=== PATIENT | male | born 1930 | race Caucasian/White ===

== ENCOUNTER 2016-12-02 04:59 | Inpatient (IN) | payer OTHER ==
[2016-11-16 14:03] VITALS: BMI 32.0
--- NOTE | 2016-11-16 14:53 | PAT Medication Instructions ---
Service Date Nov 16, 2016. Current Home Medication List Ascorbic Acid (Vitamin C), 1,000 MG PO QAM Aspirin (Aspirin Ec), 81 MG PO QAM Fenofibrate (Tricor), 160 MG PO QPM Fish Oil ([place]-3), 1 CAP PO BID Glipizide (Glipizide Er), 1 TAB PO QAM Hydrochlorothiazide (Hydrochlorothiazide), 1 TAB PO QAM Lisinopril (Prinivil), 10 MG PO QAM Loratadine (Loratadine), 1 CAP PO QAM Metoprolol Succ (Toprol Xl) (Toprol-Xl), 50 MG PO BID Montelukast Sodium (Singulair), 10 MG PO QPM Sertraline (Zoloft), 100 MG PO QAM Simvastatin (Zocor), 40 MG PO QPM Medication Instructions For Your Scheduled Surgery - Hold the following medications 2 weeks prior to surgery: Fish Oil ([place]-3), 1 CAP PO BID - Hold the following medications 24 hours prior to surgery: Fenofibrate (Tricor), 160 MG PO QPM - Hold the following medications the morning of surgery: Ascorbic Acid (Vitamin C), 1,000 MG PO QAM Glipizide (Glipizide Er), 1 TAB PO QAM Hydrochlorothiazide (Hydrochlorothiazide), 1 TAB PO QAM Lisinopril (Prinivil), 10 MG PO QAM Loratadine (Loratadine), 1 CAP PO QAM - Take the following medications the morning of surgery with a sip of water OTHERWISE NOTHING TO EAT OR DRINK AFTER MIDNIGHT: Metoprolol Succ (Toprol Xl) (Toprol-Xl), 50 MG PO BID Sertraline (Zoloft), 100 MG PO QAM Aspirin (Aspirin Ec), 81 MG PO QAM - Take the following medications as scheduled the night before surgery: Metoprolol Succ (Toprol Xl) (Toprol-Xl), 50 MG PO BID Simvastatin (Zocor), 40 MG PO QPM Montelukast Sodium (Singulair), 10 MG PO QPM If you have any questions please call us at [phone] or [phone] or [phone]
[2016-11-16 15:39] LABS: BASO % 0.4 %; BASO ABS # 0.02 K/uL (0-0.2); COMPLETE YES; EOS % 3.7 %; LYMPH % 36.2 %; LYMPH ABS # 1.65 K/uL (1.2-3.4); MEAN CORPUSCULAR HGB CONC 31.5 g/dl (32-36); MEAN PLATELET VOLUME 9.4 fL (7.4-10.4); MONO % 8.6 %; NEUT % 51.1 %; PLATELET COUNT 191 K/uL (130-400); RED BLOOD COUNT 4.77 M/uL (4.7-6.1); WHITE BLOOD COUNT 4.56 K/uL (4.8-10.8)
[2016-11-16 15:42] LABS: URINE APPEARANCE CLOUDY (CLEAR); URINE BILIRUBIN NEG (NEG); URINE COLOR YELLOW; URINE EPITHELIAL CELL AUTO 0-5 /lpf (0-5); URINE NITRITE NEG (NEG); URINE SPECIFIC GRAVITY 1.017 (1.000-1.030); UROBILINOGEN NEG (NEG)
[2016-11-16 15:43] LABS: MANUAL MICROSCOPIC REQUIRED? NO; REVIEW REQ? NO
--- NOTE | 2016-11-16 15:51 | DIAGNOSTIC IMAGING REPORT ---
CHEST PREADMISSION(PA/LAT) CLINICAL HISTORY: PAT preoperative evaluation COMPARISON STUDY: No previous studies for comparison. FINDINGS: Mild cardiomegaly. Permanent bipolar cardiac pacemaker. Lungs are clear. Diaphragms smooth. IMPRESSION: Mild cardiomegaly. No acute process. The above report was generated using voice recognition software. It may contain grammatical, syntax or spelling errors. Electronically signed by: Todd Campbell M.D. 11/16/2016 3:50 PM Dictated Date/Time: 11/16/2016 3:49 PM
[2016-11-16 16:19] LABS: CALCIUM 9.6 mg/dl (8.5-10.1); CREATININE 1.6 mg/dl (0.60-1.40); POTASSIUM 4.8 mmol/L (3.5-5.1)
[2016-11-17 05:53] LABS: ESTIMATED AVERAGE GLUCOSE 108 mg/dl; HA1C FLAG Normal (Normal)
--- NOTE | 2016-12-01 15:01 | HISTORY & PHYSICAL EXAMINATION ---
DATE OF ADMISSION: 12/02/2016 CHIEF COMPLAINT: Left hip pain. HISTORY OF PRESENT ILLNESS: The patient is an 86-year-old gentleman with severe, debilitating left hip osteoarthritis. He has almost nonambulatory due to the significant pain and disability. He has had previous injections, anti-inflammatory medications without significant benefit. He now desires to proceed with left total hip arthroplasty. PAST MEDICAL HISTORY: Bladder cancer, type 2 diabetes, hyperlipidemia, depression, coronary artery disease, sleep apnea with CPAP use, prostate cancer. PAST SURGICAL HISTORY: Cardiac pacemaker, bowel surgery, cholecystectomy, angioplasty x3, renal stent, prostate surgery, hernia repair. MEDICATIONS: Aspirin 81 mg daily, Celebrex 200 mg daily, fenofibrate 160 mg daily, fish oil 1,000 mg twice daily, fluticasone nasal spray, glipizide ER 10 mg daily, hydrochlorothiazide 25 mg daily, lisinopril 10 mg daily, loratadine 10 mg daily, montelukast 10 mg at bedtime, multivitamin daily, nitroglycerin 0.4 mg sublingual p.r.n. chest pain, omeprazole 40 mg daily, ropinirole 0.5 mg daily at bedtime, sertraline 100 mg twice daily, simvastatin 40 mg daily, Toprol-XL 50 mg twice daily, tramadol 50 mg p.r.n. pain, vitamin C 500 mg 2 tablets daily. ALLERGIES: NIACIN CAUSES FLUSHING. SOCIAL HISTORY AND REVIEW OF SYSTEMS: Noncontributory. PHYSICAL EXAMINATION: GENERAL: Well-nourished, well-developed elderly male who appears his stated age. HEAD, EYES, EARS, NOSE, AND THROAT: Normocephalic, atraumatic, extraocular movements intact, oropharynx pink and moist. NECK: Supple without adenopathy. LUNGS: Clear to auscultation bilaterally. HEART: Regular rate and rhythm. ABDOMEN: Soft, nontender, nondistended. EXTREMITIES: The upper extremity within normal limits. The left hip has severely limited range of motion. There is virtually no internal or internal/external rotation with pain at end range. X-RAYS: X-rays were reviewed. He has severe osteoarthritis about the left hip. There is severe deformation of the femoral head. ASSESSMENT: Left hip degenerative joint disease. PLAN: Risks versus benefits were discussed. Consent was obtained. The patient's primary care physician is Sharon Meza from Dr. Mohamud's office. Will proceed with left total hip arthroplasty upon preoperative workup and medical clearance.
[~2016-12-02] VITALS: Ht 182.9 cm; Wt 106.1 kg
[2016-12-02] VITALS (9 sets, daily range): BP systolic 117–177; BP diastolic 53–82; PULSE 55–66; TEMP 36.5–37.2; O2SAT 91–100; Ht 182.9 cm; Wt 106.1 kg
[~2016-12-02 04:59] MED LIST: ASCA500 PO; ASPI81TA28 PO; FENO160T PO; GLIP-199 PO; HYDR25TA5 PO; LISI10TA PO; LORA10CA10 PO; METO50TA7 PO; MONT1TAB3 PO; OMEG10007 PO; SERT-234 PO; SIMV40TA2 PO
[2016-12-02] MEDS ORDERED: CeleBREX 200 MG CAP PO SCH (06:00)
[2016-12-02] MEDS ORDERED: DEXAMETHASONE 4 MG TAB PO SCH (06:00)
[2016-12-02] MEDS ORDERED: ACETAMINOPHEN 500 MG TAB PO SCH (06:00)
[2016-12-02] MEDS ORDERED: LACTATED RINGER'S 1000ML 1,000 ML IV SCH (06:00)
[2016-12-02] MEDS ORDERED: CEFAZOLIN 2000 MG/60 ML D5W 60 ML IV SCH (06:00)
[2016-12-02] MEDS ORDERED: GABAPENTIN 300 MG CAP PO SCH (06:00)
[2016-12-02] MEDS ORDERED: METOCLOPRAMIDE HCL 10 MG TAB PO SCH (06:00)
[2016-12-02] MEDS ORDERED: LACTATED RINGER'S 1000ML IV SCH (06:00)
[2016-12-02] MEDS ORDERED: ROPIVACAINE 5MG/ML 30 ML 150 MG, BUPIVACAINE/EPINEPHR 0.5% MPF 30 ML, KETOROLAC TROMETH... INFIL SCH ×7 (06:00)
[2016-12-02] MEDS ORDERED: FAMOTIDINE 20 MG TAB PO SCH (06:00)
[2016-12-02] MEDS ORDERED: BUPIVACAINE 0.5 % 5 MG/1 ML PF 10ML VIAL ONE (06:14)
[2016-12-02] MEDS ORDERED: FENTANYL CITRATE INJ 50 MCG/1 ML 2 ML VIAL ONE (06:26)
[2016-12-02] MEDS: TRANEXAMIC ACID INJ 1,000 MG in SODIUM CHLORIDE 0.9% 100ML 100 ML IV SCH ×2 (06:30→07:00)
[2016-12-02] MEDS ORDERED: ORTHO JOINT ANESTHETIC ONE (06:47)
[2016-12-02] MEDS ORDERED: BACITRACIN 50000 UNIT VIAL ONE (06:47)
[2016-12-02] MEDS ORDERED: POVIDONE-IODINE OP SOLN 30 ML BTL ONE (06:47)
[2016-12-02] MEDS ORDERED: EpHEDrine SULFATE INJ 50 MG/ML AMP IV PRN (07:00)
[2016-12-02] MEDS ORDERED: FENTANYL CITRATE INJ 50 MCG/1 ML 2 ML VIAL IV PRN (07:00)
[2016-12-02] MEDS ORDERED: ATROPINE SULFATE 0.1 MG/ML 5ML SYR IV PRN (07:00)
[2016-12-02] MEDS ORDERED: ONDANSETRON INJ 2 MG/ML 2 ML VIAL IV PRN ×2 (07:00→08:45)
--- NOTE | 2016-12-02 07:05 | History & Physical Bridge Note ---
H&P Re-Evaluation Bridge Note: I have examined the patient, reviewed the History & Physical and in the interval since the performance of the History & Physical I have noted the following changes of clinical significance: No changes noted
[2016-12-02] MEDS ORDERED: ONDANSETRON INJ 2 MG/ML 2 ML VIAL ONE (07:49)
[2016-12-02] MEDS ORDERED: LIDOCAINE HCL 2% 2 ML VIAL (20MG/ML) ONE (07:49)
[2016-12-02] MEDS ORDERED: METOPROLOL TARTRATE 1 MG/ML VIAL ONE (07:49)
[2016-12-02] MEDS ORDERED: PROPOFOL IV EMULSION 10 MG/ML 20 ML VIAL IV ONE (07:49)
--- NOTE | 2016-12-02 08:09 | [facility] Post Operative Brief Note ---
Immediate Operative Summary Operative Date Dec 02, 2016. Pre-Operative Diagnosis Left hip degenerative joint disease Post-Operative Diagnosis Left hip degenerative joint disease Procedure(s) Performed Left total hip arthroplasty Surgeon Dr. Dahl [employer] Surgeon(s) Homer Díaz PA-C Estimated Blood Loss 100cc Findings severe OA Specimens A: Left femoral head Disposition Recovery Room / PACU
--- NOTE | 2016-12-02 08:28 | OPERATIVE REPORT ---
DATE OF OPERATION: 12/02/2016 PREOPERATIVE DIAGNOSIS: Osteoarthritis left hip. POSTOPERATIVE DIAGNOSIS: Osteoarthritis left hip. PROCEDURE: Left connective total hip arthroplasty. SURGEON: Dr. Dahl. ENVIRONMENTAL ANALYST: Homer Díaz PA-C. ANESTHESIA: Spinal. COMPLICATIONS: None. DESCRIPTION OF PROCEDURE: Following induction of adequate spinal anesthesia, the patient was placed in right lateral decubitus position and left Stefanie-Langenbeck incision was made. Subcutaneous tissue was sharply dissected. Electrocautery used for hemostasis. The fascia was incised throughout the length of the wound and a izquierdo scissor placed beneath the short external rotators. The pyriformis was tagged with #1 Vicryl. The short external rotators were divided from the posterior aspect of the femur using electrocautery. These were swept posteriorly. A T-capsulotomy incision was made and the hip was dislocated using a combination of flexion, adduction, and internal rotation. Exposure of the femoral neck with old-style Hohmann and a blunt Hohmann was carried out and a femoral rasp was utilized as a guide for making the appropriate level femoral neck cut. This bone fragment was removed and reserved on the back table. Next, attention was turned to the acetabulum where bone hook was used to retract the femur while the offset retractors were placed anterior and posteriorly. A double-angled Hohmann was placed in superior and anterior position exposing the acetabulum nicely. Acetabular labrum as well as posterior capsule elements were removed using a long knife and a long pickup. Fovea centralis was cleared of all soft tissue. Sequential reamings were carried up to a 60 and decision was made to proceed with impaction of a 60 trabecular metal cup. This was impacted and held using a single 35 mm bone screw. The acetabular liner was placed with 15 of elevated posterior wall in the superior and posterior position. Next, attention was turned to the femoral portion of the case where a Bovie and pickup was used to further clear short external rotators from their insertion on the femur. Box osteotome was used to gain access to the femoral canal and the T-handled rasp and a rattail rasp were used to further open and lateral the canal. Sequentially raspings were carried up to a 6 which gave good fit and fill of the proximal femur. A trial reduction was carried out and std offset femoral neck component was chosen as the size to be used. A -2.5 x 36 mm ceramic femoral head was impacted into position, +0 head was utilized. The trial reduction was stable in all degrees of rotation with no [id number] impingement. The hip was dislocated. The trial components were removed and the final femoral stem, neck, and femoral head combination were assembled on the back table and impacted into position. Hip was relocated. Range of motion checked once again successful and the wound was irrigated. The pyriformis repaired to the greater trochanter using #1 Vicryl [id number] suture. A Hemovac drain was placed and the fascia was closed using #1 Vicryl, subcutaneous tissue was closed using 0 Dexon, and skin was closed with jason. Sterile dressing of Adaptic, 4 x 4's, ABDs, and foam tape was applied. The patient tolerated the procedure well and went to recovery room stable. Due to the complex nature of the procedure, the entire surgery was performed with the operational assistance of Homer Díaz PA-C. The patient services assistant, under direct supervision, was involved in the actual performance of all aspects of the surgical procedure including hemostasis, tissue retraction and incision, instrument management, patient positioning, and wound closure. I attest to the content of the Intraoperative Record and any orders documented therein. Any exceptions are noted below. YOEL
[2016-12-02] MEDS ORDERED: OXYCODONE HCL IR 5 MG TAB (IMMEDIATE RELEASE) PO PRN (08:45)
[2016-12-02] MEDS ORDERED: MoRPHine SULFATE 2 MG/ML CARP IV PRN (08:45)
[2016-12-02] MEDS ORDERED: ALUMINUM/MAGNESIUM/SIMETH (MAALOX MAX) 30 ML UDC PO PRN (08:45)
[2016-12-02] MEDS ORDERED: TAMSULOSIN HCL 0.4 MG CAP PO PRN (08:45)
[2016-12-02] MEDS ORDERED: ZOLPIDEM TARTRATE 5 MG TAB PO PRN (08:45)
[2016-12-02] MEDS ORDERED: MAGNESIUM HYDROXIDE SUSP 30 ML UDC PO PRN (08:45)
[2016-12-02] MEDS ORDERED: METOCLOPRAMIDE HCL INJ 5 MG/ML 2 ML VIAL IV PRN (08:45)
[2016-12-02] MEDS ORDERED: LISINOPRIL 10 MG TAB PO SCH (09:00)
[2016-12-02] MEDS ORDERED: HYDROCHLOROTHIAZIDE 25 MG TAB PO SCH (09:00)
--- NOTE | 2016-12-02 09:24 | DIAGNOSTIC IMAGING REPORT ---
AP PELVIS AND LEFT HIP 2 VIEWS CLINICAL HISTORY: Osteoarthritis. Postop study. COMPARISON STUDY: No previous studies for comparison. FINDINGS: There are postsurgical changes of a total left hip arthroplasty. The acetabular and femoral components appear well seated. Overlying surgical drains are evident. There is air within soft tissues consistent with recent surgery. There is no dislocation. Surgical clips are present within the pelvis. IMPRESSION: Postsurgical changes of a total left hip arthroplasty. Electronically signed by: Daniel Bates M.D. 12/02/2016 9:22 AM Dictated Date/Time: 12/02/2016 9:21 AM
--- NOTE | 2016-12-02 09:45 | Anesthesiology Progress Note ---
Anesthesia Post Op Note Date & Time Dec 02, 2016 at 09:45 Vital Signs Pain Intensity: 0 Vital Signs Past 12 Hours Date Time Temp Pulse Resp B/P (MAP) Pulse Ox O2 Delivery O2 Flow Rate FiO2 12/02/16 09:35 36.6 63 18 115/56 97 Nasal Cannula 2 12/02/16 09:25 63 18 133/67 96 Nasal Cannula 2 12/02/16 09:15 60 16 143/65 99 Nasal Cannula 2 12/02/16 09:05 60 16 139/66 99 Nasal Cannula 2 12/02/16 08:55 60 16 127/58 96 Nasal Cannula 2 12/02/16 08:45 63 16 146/80 96 Nasal Cannula 2 12/02/16 08:35 37.0 75 16 129/56 97 Nasal Cannula 2 12/02/16 05:30 36.8 58 18 177/82 96 Room Air Notes Mental Status: alert / awake / arousable, participated in evaluation Pt Amnestic to Procedure: Yes Nausea / Vomiting: adequately controlled Pain: adequately controlled Airway Patency, RR, SpO2: stable & adequate BP & HR: stable & adequate Hydration State: stable & adequate Neuraxial Anesthesia: was administered, sensory block is resolving Anesthetic Complications: no major complications apparent
[2016-12-02] MEDS ORDERED: MoRPHine SULFATE 4 MG/ML 1 ML CARP\\VIAL IV PRN (10:45)
[2016-12-02] MEDS: ASCORBIC ACID 500 MG TAB PO SCH (10:58)
[2016-12-02] MEDS: SODIUM CHLORIDE 0.9% 1000ML 1,000 ML IV SCH ×2 (11:00→18:11)
[2016-12-02] MEDS: METOPROLOL SUCC 50MG EXT REL TAB PO SCH ×2 (11:02→21:21)
[2016-12-02] MEDS ORDERED: INFLUENZA VACCINE HIGH DOSE 65+ 0.5 ML SYR IM. ONE (12:30)
[2016-12-02] MEDS ORDERED: INFLUENZA ADMINISTRATION CHARGE ONE (12:30)
[2016-12-02] MEDS: KETOROLAC TROMETHAMINE 15 MG/ML VIAL IV. SCH ×3 (12:38→23:58)
[2016-12-02] MEDS: FERROUS GLUCONATE 324 MG TAB PO SCH ×2 (12:39→18:04)
[2016-12-02] MEDS: ACETAMINOPHEN 500 MG TAB PO SCH ×2 (13:41→21:22)
[2016-12-02] MEDS: CEFAZOLIN IV 2,000 MG in DEXTROSE 5% 50ML 50 ML IV SCH ×2 (16:30→23:58)
[2016-12-02] MEDS ORDERED: GLUCOSE 40% GEL 15 GM TUBE PO PRN (19:30)
[2016-12-02] MEDS ORDERED: GLUCAGON FOR INJ 1 MG VIAL SQ PRN (19:30)
[2016-12-02] MEDS ORDERED: INSULIN ASPART 100 UNITS/ML 3 ML PEN SC SCH (19:30)
[2016-12-02] MEDS ORDERED: GLUCOSE 10 TABS/TUBE PO PRN (19:30)
[2016-12-02] MEDS ORDERED: DEXTROSE 50% 50 ML SYR IV PRN (19:30)
[2016-12-02] MEDS: MONTELUKAST SOD 10 MG TAB PO SCH (21:22)
[2016-12-02] MEDS: DOCUSATE SODIUM 100 MG CAP PO SCH (21:22)
[2016-12-02] MEDS: ASPIRIN 81 MG ECTAB PO SCH (21:22)
[2016-12-02] MEDS: SIMVASTATIN 40 MG TAB PO SCH (21:22)
--- NOTE | 2016-12-02 21:22 | History and Physical ---
History & Physical Date & Time of Service: Dec 02, 2016 at 21:09. Medical consultation Chief Complaint: Left Hip Osteoarthritis Primary Care Physician: Sharon Meza .,KELLE History of Present Illness Source: patient Mr. Ambriz is an 86 y/o male with PMHx of T2DM, HLD, CAD, HANNAH on CPAP, S/P Dual Chamber Pacemaker, Bladder CA, and Prostate CA who is S/P L CINDY. Patient is ambulating the hallways when visiting for assessment. Reporting good control of pain and tolerating diet. Gait is steady with walker. A1c 5.4 on pre- operative labs and reports good control with oral agents. Cr on pre-operative labs 1.6 with no further labs for baseline. Patient verbalizes no complaints at this time. Past Medical/Surgical History 1. T2DM 2. HLD 3. CAD 4. HANNAH 5. S/P Dual Chamber Pacemaker 6. Bladder CA 7. Prostate CA Family History Diabetes mellitus Hypertension Social History Smoking Status: Never Smoker Smokeless Tobacco Use: No Alcohol Use: none Drug Use: none Occupational Status: retired Immunizations History of Influenza Vaccine: Unknown History of Tetanus Vaccine?: Unknown History of Pneumococcal: Unknown History of Hepatitis B Vaccine: Unknown Multi-Drug Resistant Organisms History of MDRO: No Allergies Coded Allergies: Niacin (Verified Adverse Reaction, Unknown, SEVERE FLUSHING, 12/02/16) Home Medications Scheduled Ascorbic Acid (Vitamin C), 1,000 MG PO QAM Aspirin (Aspirin Ec), 81 MG PO QAM Fenofibrate (Tricor), 160 MG PO QPM Fish Oil ([place]-3), 1 CAP PO BID Glipizide (Glipizide Er), 1 TAB PO QAM Hydrochlorothiazide (Hydrochlorothiazide), 1 TAB PO QAM Lisinopril (Prinivil), 10 MG PO QAM Loratadine (Loratadine), 1 CAP PO QAM Metoprolol Succ (Toprol Xl) (Toprol-Xl), 50 MG PO BID Montelukast Sodium (Singulair), 10 MG PO QPM Sertraline (Zoloft), 100 MG PO QAM Simvastatin (Zocor), 40 MG PO QPM Review of Systems Constitutional: No fever, No chills Respiratory: No cough, No shortness of breath Cardiovascular: No chest pain, No palpitations Abdomen: No pain, No nausea, No vomiting, No diarrhea, No constipation Genitourinary - Male: No dysuria Neurologic: No numbness/tingling Hematologic / Lymphatic: No abnormal bleeding/bruising, No clotting problems Integumentary: No rash Physical Exam Vital Signs Date Time Temp Pulse Resp B/P (MAP) Pulse Ox O2 Delivery O2 Flow Rate FiO2 12/02/16 19:20 36.9 60 18 117/65 (82) 91 Room Air 12/02/16 15:15 36.8 61 18 130/53 (78) 95 Room Air 12/02/16 13:02 36.8 60 17 138/64 (88) 96 Nasal Cannula 2.0 12/02/16 12:00 36.5 56 17 156/66 (96) 99 Nasal Cannula 2.0 12/02/16 11:00 36.7 57 16 146/75 (98) 100 Nasal Cannula 3.0 12/02/16 10:30 36.7 55 16 127/70 (89) 99 Nasal Cannula 3.0 12/02/16 10:00 97 Nasal Cannula 3.0 12/02/16 10:00 Nasal Cannula 3.0 12/02/16 10:00 37.2 60 16 135/66 (89) 97 Nasal Cannula 3.0 12/02/16 09:35 36.6 63 18 115/56 97 Nasal Cannula 2 12/02/16 09:25 63 18 133/67 96 Nasal Cannula 2 12/02/16 09:15 60 16 143/65 99 Nasal Cannula 2 12/02/16 09:05 60 16 139/66 99 Nasal Cannula 2 12/02/16 08:55 60 16 127/58 96 Nasal Cannula 2 12/02/16 08:45 63 16 146/80 96 Nasal Cannula 2 12/02/16 08:35 37.0 75 16 129/56 97 Nasal Cannula 2 12/02/16 05:30 36.8 58 18 177/82 96 Room Air General Appearance: WD/WN, no apparent distress Head: normocephalic, atraumatic Eyes: sclerae normal ENT: + pertinent finding (mildly heard of hearing) Neck: supple, no JVD, trachea midline Respiratory/Chest: lungs clear, normal breath sounds, no respiratory distress, no accessory muscle use Cardiovascular: regular rate, rhythm Abdomen/GI: normal bowel sounds, non tender, soft Extremities/Musculoskelatal: no calf tenderness, no pedal edema, + pertinent finding (drain placed; TAD wrap C/D/I) Neurologic/Psych: alert, oriented x 3 Skin: normal color, warm/dry Diagnostics Laboratory Results Results Past 24 Hours Test 12/02/16 05:15 12/02/16 20:42 Range/Units Bedside Glucose 91 144 70-99 mg/dl Impression Assessment and Plan Mr. Ambriz is an 86 y/o male with PMHx of T2DM, HLD, CAD, HANNAH on CPAP, S/P Dual Chamber Pacemaker, Bladder CA, and Prostate CA who is S/P L CINDY. S/P L CINDY on 12/02: - Pain management, IVF, PT/OT, DVT prophylaxis per primary - DVT prophylaxis - ASA 81 mg BID T2DM: A1c 5.4 - Glipizide XL 10 mg daily and SSI HTN: - Hold HCTZ and Lisinopril until morning labs - cover with PRN Hydralazine - Metoprolol SUcc 50 mg BID CAD: - ASA as above and Zocor 40 mg daily Possible CKD Stage III: - Limited labs but given history would suspect some underlying kidney disease - Avoid nephrotoxic agents and monitor with BMP Attending Addendum: I have physically seen and examined this patient, have directed the physician assistants medical activities, and agree with the H&P as noted above with the following exceptions as noted. The patient is awake, alert and oriented 3, well-developed and well-nourished , normocephalic and atraumatic, mildly hard of hearing, lying in bed and in no acute distress. HEENT--PERRL, EOMI, mucous membranes and oropharynx normal. Neck--supple, no JVD or bruits, thyroid normal, trachea midline, no adenopathy. Heart--normal S1 and S2, no extra beats, no murmurs, rubs or gallops. Lungs--clear bilaterally with good air movement, no respiratory distress, no accessory muscle use. Abdomen--normal bowel sounds and soft, nontender and nondistended, no hernias or masses, no organomegaly. Extremities--strength placed in left hip and Tad wrapped. There are good distal pulses b/l. Dermatologic--normal skin turgor, normal color, warm and dry, no abnormal lymph nodes, no rash. Neurologic--cranial nerves II through XII grossly intact. Rheumatologic--limited postsurgery Psychiatric--normal affect. Assessment and Plan: Status post left total hip arthroplasty on 12/02-- Seen postoperatively is medically stable. Diabetes mellitus-- Place on Accu-Cheks before meals and at bedtime with NovoLog coverage per scale. Glipizide XL 10 mg daily. CAD/hypertension-- Hold HCTZ and lisinopril until morning labs. Metoprolol succinate 50 mg by mouth twice a day with hold parameters. Hydralazine 10 mg IV every 4 hours when necessary systolic blood pressure greater 160. Level of Care Med/Surg Advanced Directives Existing Advance Directive: No Existing Living Will: No Existing Power of Segregator: No Resuscitation Status FULL RESUSCITATION VTE Prophylaxis VTE Risk Assessment Done? Y/N: Yes Risk Level: Low
[2016-12-03] MEDS: SODIUM CHLORIDE 0.9% 1000ML 1,000 ML IV SCH ×2 (03:55→14:38)
[2016-12-03 04:00] VITALS: BP 139/66; PULSE 64; TEMP 36.8; O2SAT 96
[2016-12-03] MEDS: KETOROLAC TROMETHAMINE 15 MG/ML VIAL IV. SCH (05:43)
[2016-12-03] MEDS: ACETAMINOPHEN 500 MG TAB PO SCH ×3 (05:43→21:05)
[2016-12-03 06:43] LABS: BASO % 0.3 %; BASO ABS # 0.02 K/uL (0-0.2); COMPLETE YES; EOS % 0.3 %; HEMATOCRIT 32.1 % (42-52); IG% 0.2 %; LYMPH % 18.3 %; LYMPH ABS # 1.15 K/uL (1.2-3.4); MEAN CELL VOLUME 84.3 fL (80-100); MEAN CORPUSCULAR HEMOGLOBIN 27.3 pg (25-34); MEAN CORPUSCULAR HGB CONC 32.4 g/dl (32-36); MEAN PLATELET VOLUME 9.8 fL (7.4-10.4); MONO % 11.8 %; NEUT % 69.1 %; PLATELET COUNT 140 K/uL (130-400); RED BLOOD COUNT 3.81 M/uL (4.7-6.1); WHITE BLOOD COUNT 6.28 K/uL (4.8-10.8)
[2016-12-03 07:22] LABS: BUN/CREATININE RATIO 21.5 (10-20); CALCIUM 8.5 mg/dl (8.5-10.1); CREATININE 2.3 mg/dl (0.60-1.40); POTASSIUM 4.5 mmol/L (3.5-5.1)
[2016-12-03] MEDS ORDERED: DEXAMETHASONE INJ 10 MG in SYRINGE 0 ML IV ONE (07:30)
[2016-12-03 07:37] VITALS: BP 150/72; PULSE 60; TEMP 36.6; O2SAT 94
--- NOTE | 2016-12-03 07:39 | Orthopedic Progress Note ---
Orthopedic Progress Note Date of Service Dec 03, 2016. Subjective Post OP Day: 1 Reports: feeling well, Denies: complaints Objective calves soft nontender, N/V intact, hip located, dressing C/D/I, A&O x3, toes mobile Date Time Temp Pulse Resp B/P (MAP) Pulse Ox O2 Delivery O2 Flow Rate FiO2 12/03/16 04:00 36.8 64 18 139/66 (90) 96 CPAP 12/02/16 23:45 Room Air CPAP 12/02/16 23:22 36.5 66 18 146/75 (98) 93 CPAP 12/02/16 19:20 36.9 60 18 117/65 (82) 91 Room Air 12/02/16 16:30 Room Air 12/02/16 15:15 36.8 61 18 130/53 (78) 95 Room Air 12/02/16 13:02 36.8 60 17 138/64 (88) 96 Nasal Cannula 2.0 12/02/16 12:00 36.5 56 17 156/66 (96) 99 Nasal Cannula 2.0 12/02/16 11:00 36.7 57 16 146/75 (98) 100 Nasal Cannula 3.0 12/02/16 10:30 36.7 55 16 127/70 (89) 99 Nasal Cannula 3.0 12/02/16 10:00 97 Nasal Cannula 3.0 12/02/16 10:00 Nasal Cannula 3.0 12/02/16 10:00 37.2 60 16 135/66 (89) 97 Nasal Cannula 3.0 12/02/16 09:35 36.6 63 18 115/56 97 Nasal Cannula 2 12/02/16 09:25 63 18 133/67 96 Nasal Cannula 2 12/02/16 09:15 60 16 143/65 99 Nasal Cannula 2 12/02/16 09:05 60 16 139/66 99 Nasal Cannula 2 12/02/16 08:55 60 16 127/58 96 Nasal Cannula 2 12/02/16 08:45 63 16 146/80 96 Nasal Cannula 2 12/02/16 08:35 37.0 75 16 129/56 97 Nasal Cannula 2 Laboratory Results 24 Hours: Test 12/03/16 06:30 White Blood Count 6.28 K/uL Red Blood Count 3.81 M/uL Hemoglobin 10.4 g/dL Hematocrit 32.1 % Mean Corpuscular Volume 84.3 fL Mean Corpuscular Hemoglobin 27.3 pg Mean Corpuscular Hemoglobin Concent 32.4 g/dl Platelet Count 140 K/uL Mean Platelet Volume 9.8 fL Neutrophils (%) (Auto) 69.1 % Lymphocytes (%) (Auto) 18.3 % Monocytes (%) (Auto) 11.8 % Eosinophils (%) (Auto) 0.3 % Basophils (%) (Auto) 0.3 % Neutrophils # (Auto) 4.34 K/uL Lymphocytes # (Auto) 1.15 K/uL Monocytes # (Auto) 0.74 K/uL Eosinophils # (Auto) 0.02 K/uL Basophils # (Auto) 0.02 K/uL Assessment & Plan Assessment: POD 1 s/p Left CINDY Increase in BUN/Creat Plan: PT/OT All NSAIDS on hold for now continue IV hydration Planning for SNF vs [facility]; If SNF, patient will need a 3 day stay prior to DC Inhouse Planning Pain Management: Morphine, PO Tylenol, Oxy IR DVT Prophylaxis: TEDs, SCDs, ASA Discharge Planning Discharge Planning: uncertain
[2016-12-03] MEDS: ASCORBIC ACID 500 MG TAB PO SCH (07:51)
[2016-12-03] MEDS: METOPROLOL SUCC 50MG EXT REL TAB PO SCH ×2 (07:52→21:06)
[2016-12-03] MEDS: DOCUSATE SODIUM 100 MG CAP PO SCH ×2 (07:53→21:04)
[2016-12-03] MEDS: FERROUS GLUCONATE 324 MG TAB PO SCH ×3 (07:53→17:25)
[2016-12-03] MEDS: ASPIRIN 81 MG ECTAB PO SCH ×2 (07:53→21:04)
[2016-12-03] MEDS: MULTIVITAMIN TAB PO SCH (07:54)
[2016-12-03] MEDS: SERTRALINE HCL 100 MG TAB PO SCH (07:54)
[2016-12-03] MEDS ORDERED: INSULIN ASPART 100 UNITS/ML 3 ML PEN SC SCH (08:00)
--- NOTE | 2016-12-03 08:30 | Anesthesiology Progress Note ---
Anesthesia Post Op Note Date & Time Dec 03, 2016 at 08:30 Vital Signs Pain Intensity: 0.0 Vital Signs Past 12 Hours Date Time Temp Pulse Resp B/P (MAP) Pulse Ox O2 Delivery O2 Flow Rate FiO2 12/03/16 07:37 36.6 60 18 150/72 (98) 94 Room Air 12/03/16 04:00 36.8 64 18 139/66 (90) 96 CPAP 12/02/16 23:45 Room Air CPAP 12/02/16 23:22 36.5 66 18 146/75 (98) 93 CPAP Notes Mental Status: alert / awake / arousable, participated in evaluation Pt Amnestic to Procedure: Yes Nausea / Vomiting: adequately controlled Pain: adequately controlled Airway Patency, RR, SpO2: stable & adequate BP & HR: stable & adequate Hydration State: stable & adequate Neuraxial Anesthesia: was administered, sensory block resolved Anesthetic Complications: no major complications apparent
--- NOTE | 2016-12-03 09:49 | Clinical Documentation Query ---
CLINICAL DOCUMENTATION QUERY An 86 yo male with S/P L CINDY and hx of CKD stage III. In your clinical opinion is this patient being managed for: ( x ) Acute kidney failure, unspecified - Only did the initial consultation and will not be documenting on this patient ( ) Not Agree ( ) Other explanation of clinical findings (Please Explain) ( ) Unable to determine (Please Define) ( ) Need to Discuss The medical record reflects the following clinical findings, treatment, and risk factors. Clinical Indicators: sCr increase 0.7ml/dl in 48 hr (1.60 trending up to 2.30), decline in GFR (37.9 baseline trending down to 24.4) Treatment: IV hydration, I&O Risk Factors: age, s/p surgical intervention, ckd III Please clarify and document your clinical opinion in the progress notes and discharge summary. Terms such as "probable", "suspected", "likely", "questionable", "possible", or "still to be ruled out" are acceptable. IF IN AGREEMENT, YOU MUST DOCUMENT ABOVE DIAGNOSTIC STATEMENT IN DAILY PROGRESS NOTES AND DISCHARGE SUMMARY. This document is not part of the patient's record. Thank You, Shima Patel RN [phone]
[2016-12-03] MEDS ORDERED: NURSING VERBAL MED ORDER ONE (14:00)
[2016-12-03 15:01] VITALS: BP 176/73; PULSE 61; TEMP 36.7; O2SAT 96
--- NOTE | 2016-12-03 16:45 | Hospitalist Progress Note ---
Hospitalist Progress Note Date of Service Dec 03, 2016. Subjective Pt evaluation today including: conversation w/ patient, conversation w/ family Voiding: cabral catheter in place Pt feeling very well, no hip pain, ambulated with PT today. No CP or SOB, no MARRUFO , no N/V, is nellie po, moved his bowels. I reviewed all of his outpt records. Packer Denture increased today All Other Systems: Reviewed and Negative Objective Vital Signs Date Time Temp Pulse Resp B/P (MAP) Pulse Ox O2 Delivery O2 Flow Rate FiO2 12/03/16 15:01 36.7 61 16 176/73 (107) 96 Room Air 12/03/16 08:00 Room Air 12/03/16 07:37 36.6 60 18 150/72 (98) 94 Room Air 12/03/16 04:00 36.8 64 18 139/66 (90) 96 CPAP 12/02/16 23:45 Room Air CPAP 12/02/16 23:22 36.5 66 18 146/75 (98) 93 CPAP 12/02/16 19:20 36.9 60 18 117/65 (82) 91 Room Air 12/02/16 16:30 Room Air Physical Exam General Appearance: WD/WN, no apparent distress Eyes: normal inspection, sclerae normal ENT: hearing grossly normal Neck: no carotid bruits, trachea midline Respiratory/Chest: no respiratory distress, no accessory muscle use, + crackles (at bases bilat faint, mostly clear with deep inspiration) Cardiovascular: regular rate, rhythm, no edema, no gallop, no murmur Abdomen: normal bowel sounds, non tender, soft Extremities: no pedal edema, no calf tenderness, + pertinent finding (left hip with dressing in place c/d/i, drain with blood) Neurologic/Psychiatric: alert, normal mood/affect, oriented x 3 Skin: normal color, warm/dry, no rash Laboratory Results Last 24 Hours Test 12/02/16 17:02 12/02/16 20:42 12/03/16 06:30 12/03/16 08:11 Bedside Glucose 216 mg/dl 144 mg/dl 118 mg/dl White Blood Count 6.28 K/uL Red Blood Count 3.81 M/uL Hemoglobin 10.4 g/dL Hematocrit 32.1 % Mean Corpuscular Volume 84.3 fL Mean Corpuscular Hemoglobin 27.3 pg Mean Corpuscular Hemoglobin Concent 32.4 g/dl Platelet Count 140 K/uL Mean Platelet Volume 9.8 fL Neutrophils (%) (Auto) 69.1 % Lymphocytes (%) (Auto) 18.3 % Monocytes (%) (Auto) 11.8 % Eosinophils (%) (Auto) 0.3 % Basophils (%) (Auto) 0.3 % Neutrophils # (Auto) 4.34 K/uL Lymphocytes # (Auto) 1.15 K/uL Monocytes # (Auto) 0.74 K/uL Eosinophils # (Auto) 0.02 K/uL Basophils # (Auto) 0.02 K/uL RDW Standard Deviation 52.8 fL RDW Coefficient of Variation 17.0 % Immature Granulocyte % (Auto) 0.2 % Immature Granulocyte # (Auto) 0.01 K/uL Sodium Level 142 mmol/L Potassium Level 4.5 mmol/L Chloride Level 110 mmol/L Carbon Dioxide Level 25 mmol/L Anion Gap 7.0 mmol/L Blood Urea Nitrogen 50 mg/dl Creatinine 2.30 mg/dl Est Creatinine Clear Calc Drug Dose 27.9 ml/min Estimated GFR () 28.3 Estimated GFR (Non- 24.4 BUN/Creatinine Ratio 21.5 Random Glucose 122 mg/dl Calcium Level 8.5 mg/dl Test 12/03/16 12:04 Bedside Glucose 199 mg/dl Assessment and Plan Mr. Ambriz is an 86 y/o male with PMHx of T2DM, HLD, CAD s/p stent placement to LCx in 2007, S/P Dual Chamber Pacemaker placement for sinus node dysfunction 03/2016, HANNAH on CPAP, Bladder CA, and Prostate CA now s/p prostatectomy who is S /P L CINDY. 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 - continue to hold HCTZ and Lisinopril -PRN Hydralazine IV - continue Metoprolol Succ 50 mg BID CAD s/p stent placement to LCx in 2007, S/P Dual Chamber Pacemaker placement for sinus node dysfunction 03/2016 - ASA as above and Zocor 40 mg daily -continue Toprol -restart lisinopril when travel writer improved SHERLY in setting of CKD Stage III-baselie cr 1.6 from preop labs, now travel writer up to 2.3 -could be some ATN from intraoperative hypotension, but could be prerenal with elevated BUN/travel writer ratio -continue IVFs but lower rate to 75 mls/hr - Avoid nephrotoxic agents and monitor with BMP in the AM -continue to hold lisinopril and HCTZ HANNAH on CPAP-stable -continue CPAP H/o Prostate and Bladder CA-in remission, s/p prostatectomy-no issues Proph-ASA 81mg bid Dispo-to SNF on Tuesday
[2016-12-03 17:29] VITALS: BP 160/76
[2016-12-03] MEDS: INSULIN ASPART 100 UNITS/ML 3 ML PEN SC SCH ×2 (17:34→21:00)
[2016-12-03] MEDS: HydrALAZINE HCL 20 MG/ML VIAL IV. PRN (17:35)
[2016-12-03] MEDS ORDERED: CeleBREX 200 MG CAP PO SCH (21:00)
[2016-12-03] MEDS: FENOFIBRATE 160 MG TAB PO SCH (21:04)
[2016-12-03] MEDS: MONTELUKAST SOD 10 MG TAB PO SCH (21:05)
[2016-12-03] MEDS: SIMVASTATIN 40 MG TAB PO SCH (21:05)
[2016-12-03 21:09] VITALS: BP 159/68
[2016-12-03 22:55] VITALS: BP 151/64; PULSE 56; TEMP 36.9; O2SAT 95
[2016-12-04] VITALS (7 sets, daily range): BP systolic 163–190; BP diastolic 55–79; PULSE 44–66; TEMP 36.8–36.9; O2SAT 94–95
[2016-12-04] MEDS: ACETAMINOPHEN 500 MG TAB PO SCH ×3 (06:05→21:41)
[2016-12-04] MEDS: SODIUM CHLORIDE 0.9% 1000ML 1,000 ML IV SCH (06:25)
[2016-12-04 06:43] LABS: BASO % 0.3 %; BASO ABS # 0.02 K/uL (0-0.2); COMPLETE YES; EOS % 1.4 %; HEMATOCRIT 30.4 % (42-52); IG% 0.2 %; LYMPH % 23.6 %; LYMPH ABS # 1.35 K/uL (1.2-3.4); MEAN CELL VOLUME 83.7 fL (80-100); MEAN CORPUSCULAR HEMOGLOBIN 27.3 pg (25-34); MEAN CORPUSCULAR HGB CONC 32.6 g/dl (32-36); MEAN PLATELET VOLUME 9.8 fL (7.4-10.4); MONO % 9.6 %; NEUT % 64.9 %; PLATELET COUNT 136 K/uL (130-400); RED BLOOD COUNT 3.63 M/uL (4.7-6.1); WHITE BLOOD COUNT 5.73 K/uL (4.8-10.8)
[2016-12-04 07:15] LABS: BUN/CREATININE RATIO 24.3 (10-20); CALCIUM 8.6 mg/dl (8.5-10.1); CREATININE 1.7 mg/dl (0.60-1.40); POTASSIUM 3.6 mmol/L (3.5-5.1)
[2016-12-04] MEDS: METOPROLOL SUCC 50MG EXT REL TAB PO SCH ×2 (07:31→21:41)
[2016-12-04] MEDS: MULTIVITAMIN TAB PO SCH (07:31)
[2016-12-04] MEDS: SERTRALINE HCL 100 MG TAB PO SCH (07:31)
[2016-12-04] MEDS: ASCORBIC ACID 500 MG TAB PO SCH (07:31)
[2016-12-04] MEDS: DOCUSATE SODIUM 100 MG CAP PO SCH ×2 (07:32→21:41)
[2016-12-04] MEDS: ASPIRIN 81 MG ECTAB PO SCH ×2 (07:32→21:41)
[2016-12-04] MEDS: FERROUS GLUCONATE 324 MG TAB PO SCH ×3 (07:33→18:30)
[2016-12-04] MEDS: INSULIN ASPART 100 UNITS/ML 3 ML PEN SC SCH ×4 (08:28→21:46)
--- NOTE | 2016-12-04 09:30 | Orthopedic Progress Note ---
Orthopedic Progress Note Date of Service Dec 04, 2016. Subjective Post OP Day: 2 Reports: feeling well, pain controlled w PO medications, Denies: complaints, chest pain, SOB, nausea / vomiting, light headedness, calf pain Objective calves soft nontender, N/V intact, hip located, capillary refill less than 2 sec., dressing C/D/I, A&O x3, toes mobile Silverlon in tact. Date Time Temp Pulse Resp B/P (MAP) Pulse Ox O2 Delivery O2 Flow Rate FiO2 12/04/16 06:53 36.8 54 16 163/79 (107) 94 Room Air 12/03/16 23:31 CPAP 12/03/16 22:55 36.9 56 16 151/64 (93) 95 BiPAP 12/03/16 21:09 159/68 (98) 12/03/16 17:29 160/76 (104) 12/03/16 16:33 Room Air CPAP 12/03/16 15:01 36.7 61 16 176/73 (107) 96 Room Air Laboratory Results 24 Hours: Test 12/04/16 05:58 White Blood Count 5.73 K/uL Red Blood Count 3.63 M/uL Hemoglobin 9.9 g/dL Hematocrit 30.4 % Mean Corpuscular Volume 83.7 fL Mean Corpuscular Hemoglobin 27.3 pg Mean Corpuscular Hemoglobin Concent 32.6 g/dl Platelet Count 136 K/uL Mean Platelet Volume 9.8 fL Neutrophils (%) (Auto) 64.9 % Lymphocytes (%) (Auto) 23.6 % Monocytes (%) (Auto) 9.6 % Eosinophils (%) (Auto) 1.4 % Basophils (%) (Auto) 0.3 % Neutrophils # (Auto) 3.72 K/uL Lymphocytes # (Auto) 1.35 K/uL Monocytes # (Auto) 0.55 K/uL Eosinophils # (Auto) 0.08 K/uL Basophils # (Auto) 0.02 K/uL Assessment & Plan Assessment: POD 2 s/p Left CINDY Increase in BUN/Creat Plan: PT/OT All NSAIDS on hold for now continue IV hydration Planning for [facility] Tuesday. DVT proph- ASA Inhouse Planning Pain Management: Morphine, PO Tylenol, Oxy IR DVT Prophylaxis: TEDs, SCDs, ASA Discharge Planning Discharge Planning: uncertain
[2016-12-04] MEDS ORDERED: GLCSR25 PO (15:16)
--- NOTE | 2016-12-04 15:42 | Hospitalist Progress Note ---
Hospitalist Progress Note Date of Service Dec 04, 2016. Subjective Pt evaluation today including: conversation w/ patient, conversation w/ family Voiding: no voiding problems Feeling well. Discussed CKD at length today and provided him with reading material on CKD. Promotions Producer much improved back to baseline. BPs running high. Pt denies CP or SOB, no other concerns. Moved his bowels yesterday. Pain controlled , nellie po All Other Systems: Reviewed and Negative Objective Vital Signs Date Time Temp Pulse Resp B/P (MAP) Pulse Ox O2 Delivery O2 Flow Rate FiO2 12/04/16 15:04 36.9 58 16 171/71 (104) 95 Room Air 12/04/16 08:00 Room Air 12/04/16 06:53 36.8 54 16 163/79 (107) 94 Room Air 12/03/16 23:31 CPAP 12/03/16 22:55 36.9 56 16 151/64 (93) 95 BiPAP 12/03/16 21:09 159/68 (98) 12/03/16 17:29 160/76 (104) 12/03/16 16:33 Room Air CPAP Physical Exam General Appearance: WD/WN, no apparent distress Eyes: normal inspection, sclerae normal ENT: hearing grossly normal Neck: trachea midline Respiratory/Chest: lungs clear, normal breath sounds, no respiratory distress, no accessory muscle use Cardiovascular: regular rate, rhythm, no edema, no gallop, no murmur Abdomen: normal bowel sounds, non tender, soft Extremities: no pedal edema, no calf tenderness, + pertinent finding (left hip with dressing c/d/i) Neurologic/Psychiatric: alert, normal mood/affect, oriented x 3 Skin: normal color, warm/dry, no rash Laboratory Results Last 24 Hours Test 12/03/16 17:23 12/03/16 20:12 12/04/16 05:58 12/04/16 06:43 Bedside Glucose 174 mg/dl 116 mg/dl 75 mg/dl White Blood Count 5.73 K/uL Red Blood Count 3.63 M/uL Hemoglobin 9.9 g/dL Hematocrit 30.4 % Mean Corpuscular Volume 83.7 fL Mean Corpuscular Hemoglobin 27.3 pg Mean Corpuscular Hemoglobin Concent 32.6 g/dl Platelet Count 136 K/uL Mean Platelet Volume 9.8 fL Neutrophils (%) (Auto) 64.9 % Lymphocytes (%) (Auto) 23.6 % Monocytes (%) (Auto) 9.6 % Eosinophils (%) (Auto) 1.4 % Basophils (%) (Auto) 0.3 % Neutrophils # (Auto) 3.72 K/uL Lymphocytes # (Auto) 1.35 K/uL Monocytes # (Auto) 0.55 K/uL Eosinophils # (Auto) 0.08 K/uL Basophils # (Auto) 0.02 K/uL RDW Standard Deviation 53.4 fL RDW Coefficient of Variation 17.3 % Immature Granulocyte % (Auto) 0.2 % Immature Granulocyte # (Auto) 0.01 K/uL Sodium Level 143 mmol/L Potassium Level 3.6 mmol/L Chloride Level 111 mmol/L Carbon Dioxide Level 24 mmol/L Anion Gap 8.0 mmol/L Blood Urea Nitrogen 41 mg/dl Creatinine 1.70 mg/dl Est Creatinine Clear Calc Drug Dose 37.8 ml/min Estimated GFR () 40.8 Estimated GFR (Non- 35.2 BUN/Creatinine Ratio 24.3 Random Glucose 76 mg/dl Calcium Level 8.6 mg/dl Test 12/04/16 12:07 Bedside Glucose 73 mg/dl Assessment and Plan Mr. Ambriz is an 86 y/o male with PMHx of T2DM, HLD, CAD s/p stent placement to LCx in 2007, S/P Dual Chamber Pacemaker placement for sinus node dysfunction 03/2016, HANNAH on CPAP, Bladder CA, and Prostate CA now s/p prostatectomy who is S /P L CINDY. 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 Promotions Producer improved - continue to hold HCTZ -restart Lisinopril 5mg today and then home dose of 10mg qAM tomorrow -PRN Hydralazine IV - continue Metoprolol Succ 50 mg BID CAD s/p stent placement to LCx in 2007, S/P Dual Chamber Pacemaker placement for sinus node dysfunction 03/2016 - ASA as above and Zocor 40 mg daily -continue Toprol -restart lisinopril SHERLY in setting of CKD Stage III-kamiie cr 1.6 from preop labs, youth development professional up to 2.3 POD#1, now returned to 1.7 with IVFs-resolved SHERLY -could be some ATN from intraoperative hypotension, but could be prerenal with elevated BUN/youth development professional ratio -dc IVFs - Avoid nephrotoxic agents and monitor with BMP in the AM -restart lisinopril -continue to hold HCTZ and consider adding back on in future only if needed for peripheral edema -gave pt education in pamphlet form printed for review of CKD HANNAH on CPAP-stable -continue CPAP nocturnally H/o Prostate and Bladder CA-in remission, s/p prostatectomy-no issues Proph-ASA 81mg bid Dispo-to SNF on Tuesday
[2016-12-04] MEDS ORDERED: LISINOPRIL 5 MG TAB PO ONE (15:45)
[2016-12-04] MEDS: HydrALAZINE HCL 20 MG/ML VIAL IV. PRN (19:49)
[2016-12-04] MEDS: SIMVASTATIN 40 MG TAB PO SCH (21:42)
[2016-12-04] MEDS: FENOFIBRATE 160 MG TAB PO SCH (21:42)
[2016-12-04] MEDS: MONTELUKAST SOD 10 MG TAB PO SCH (21:42)
[2016-12-05] VITALS (9 sets, daily range): BP systolic 134–179; BP diastolic 56–82; PULSE 44–60; TEMP 36.7–36.9; O2SAT 95–96
[2016-12-05] MEDS: HydrALAZINE HCL 20 MG/ML VIAL IV. PRN (03:38)
[2016-12-05] MEDS: ACETAMINOPHEN 500 MG TAB PO SCH ×2 (05:53→13:54)
--- NOTE | 2016-12-05 08:47 | Orthopedic Progress Note ---
Orthopedic Progress Note Date of Service Dec 05, 2016. Subjective Post OP Day: 3 Reports: feeling well, pain controlled w PO medications, Denies: complaints, chest pain, SOB, nausea / vomiting, light headedness, calf pain Objective calves soft nontender, N/V intact, capillary refill less than 2 sec., dressing C /D/I, A&O x3, toes mobile Silverlon in tact Date Time Temp Pulse Resp B/P (MAP) Pulse Ox O2 Delivery O2 Flow Rate FiO2 12/05/16 07:28 36.9 60 16 164/73 (103) 96 CPAP 12/05/16 05:08 60 157/72 (100) 12/05/16 03:34 60 169/82 (111) 12/05/16 00:00 CPAP 12/04/16 23:30 36.9 48 18 174/55 (94) 95 BiPAP 12/04/16 22:30 44 183/61 (101) 12/04/16 21:39 63 178/68 (104) 12/04/16 18:52 66 190/66 (107) 12/04/16 15:10 177/66 (103) 12/04/16 15:10 Room Air 12/04/16 15:04 36.9 58 16 171/71 (104) 95 Room Air Assessment & Plan Assessment: POD 3 s/p Left CINDY Increase in BUN/Creat Plan: PT/OT All NSAIDS on hold for now continue IV hydration Planning for [facility] today DVT proph- ASA Inhouse Planning Pain Management: Morphine, PO Tylenol, Oxy IR DVT Prophylaxis: TEDs, SCDs, ASA Discharge Planning Discharge Planning: [facility], uncertain
[2016-12-05] MEDS ORDERED: RXC5 PO (08:50)
[2016-12-05] MEDS ORDERED: ASPEC81 PO (08:50)
--- NOTE | 2016-12-05 08:51 | Discharge Instructions ---
Discharge Instructions Date of Service Dec 05, 2016. Admission Reason for Admission: Left Hip Osteoarthritis Discharge Discharge Diagnosis / Problem: Left CINDY Discharge Goals Goal(s): Improve function Activity Recommendations Activity Level: Assistance Required . Additional Information Patient informed of condition: Yes Advance Directives: Yes DNR: No Level of Care: Skilled Communicable Disease: No Prognosis: Improving [place] Catheter: No Current Hospital Diet Patient's current hospital diet: Diabetes Type 2 Diet Discharge Diet Recommended Diet: Diabetes Type 2 Diet Procedures Procedures Performed: Left total hip arthroplasty Pending Studies Studies pending at discharge: no Laboratory Results Hemoglobin A1c Test 11/16/16 15:10 Range/Units Estimated Average Glucose 108 mg/dl Hemoglobin A1c 5.4 4.5-5.6 % Medical Emergencies . Who to Call and When: Medical Emergencies: If at any time you feel your situation is an emergency, please call 911 immediately. . Non-Emergent Contact Non-Emergency issues call your: Primary Care Provider . . "Provider Documentation" section prepared by Todd Moreno. . Apprentice Cook Recommendations Apprentice Cook Recommendations: MEDICAL CONSULTATION: Mr. Ambriz is an 86 y/o male with PMHx of T2DM, HLD, CAD s/p stent placement to LCx in 2007, S/P Dual Chamber Pacemaker placement for sinus node dysfunction 03/2016, HANNAH on CPAP, Bladder CA, and Prostate CA now s/p prostatectomy who is S /P L CINDY. 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--> Molybdenum Steamer Operator 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 and lisinopril restarted--> BPs improved today - continue to hold HCTZ on discharge -restarted Lisinopril 10mg -PRN Hydralazine IV - continue Metoprolol Succ 50 mg BID CAD s/p stent placement to LCx in 2007, S/P Dual Chamber Pacemaker placement for sinus node dysfunction 03/2016 - ASA as above and Zocor 40 mg daily -continue Toprol -continue lisinopril SHERLY in setting of CKD Stage III-baseline cr 1.6 from preop labs, veterinary manager up to 2.3 POD#1, then returned to 1.7 with IVFs-resolved SHERLY -check Molybdenum Steamer Operator today prior to discharge since started lisinopril-if not significantly worse or if improved, can dc to SNF -etiology likely ATN from intraoperative hypotension, but could be prerenal with elevated BUN/veterinary manager ratio - Avoid nephrotoxic agents and monitor with BMP periodically with PCP -restarted lisinopril -continue to hold HCTZ and consider adding back on in future only if needed for peripheral edema -gave pt education in pamphlet form printed for review of CKD 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 Ortho sent off a urine culture from [facility] on 12/02/16 which is now growing out GNR. Pt is asymptomatic but did have [facility] placed this admission and had joint replacement so want to avoid bacteremia. -treat empirically with Keflex 500mg po bid -NH should follow up on URINE Cx results to ensure sensitivities ok for this choice of antibiotic HANNAH on CPAP-stable -continue CPAP nocturnally H/o Prostate and Bladder CA-in remission, s/p prostatectomy-no issues Proph-ASA 81mg bid Dispo-to SNF likely today if creatinine ok Core Measure Problem Core Measures: VTE VTE Core Measures Date of VTE Diagnosis: Dec 05, 2016 Time of VTE Diagnosis: 08:51 Reason no anticoag overlap I/P: Treatment provided - N/A Reason no anticoag overlap @DC: Treatment provided - N/A [place] Drug Monitoring Program Search Results: patient reviewed within database, no issues identified
[2016-12-05] MEDS ORDERED: LISINOPRIL 10 MG TAB PO SCH (09:00)
[2016-12-05] MEDS ORDERED: CEPHALEXIN MONOHYDRATE 500 MG CAP PO ONE (09:24)
[2016-12-05] MEDS ORDERED: CEPH-571 PO (09:27)
[2016-12-05] MEDS: FERROUS GLUCONATE 324 MG TAB PO SCH ×2 (09:37→13:44)
[2016-12-05] MEDS: MULTIVITAMIN TAB PO SCH (09:38)
[2016-12-05] MEDS: ASCORBIC ACID 500 MG TAB PO SCH (09:39)
[2016-12-05] MEDS: SERTRALINE HCL 100 MG TAB PO SCH (09:40)
[2016-12-05] MEDS: DOCUSATE SODIUM 100 MG CAP PO SCH (09:41)
[2016-12-05] MEDS: ASPIRIN 81 MG ECTAB PO SCH (09:41)
[2016-12-05] MEDS: INSULIN ASPART 100 UNITS/ML 3 ML PEN SC SCH ×2 (09:51→13:52)
[2016-12-05] MEDS: METOPROLOL SUCC 50MG EXT REL TAB PO SCH (09:53)
[2016-12-05] MEDS ORDERED: VGMOPS OPB (10:14)
--- NOTE | 2016-12-05 10:22 | Hospitalist Progress Note ---
Hospitalist Progress Note Date of Service Dec 05, 2016. Subjective Pt evaluation today including: conversation w/ patient, conversation w/ linux consultant (Kevin GANDHI), review of inpatient medication list Voiding: no voiding problems (denies dysuria or retention) Pt feeling very well. Eating, no N/V, no CP or SOB, no abd pain, hip pain is controlled. He has a long h/o red and watery eyes that comes and goes, is followed by Ophthalmology. His eyes have been red and itchy with some crusty drainage for the last week. He has been prescribed antibiotic drops in the past for this. BPs have been elevated but was restarted on his lisinopril yesterday All Other Systems: Reviewed and Negative Objective Vital Signs Date Time Temp Pulse Resp B/P (MAP) Pulse Ox O2 Delivery O2 Flow Rate FiO2 12/05/16 09:42 56 156/62 (93) 12/05/16 07:28 36.9 60 16 164/73 (103) 96 CPAP 12/05/16 05:08 60 157/72 (100) 12/05/16 03:34 60 169/82 (111) 12/05/16 00:00 CPAP 12/04/16 23:30 36.9 48 18 174/55 (94) 95 BiPAP 12/04/16 22:30 44 183/61 (101) 12/04/16 21:39 63 178/68 (104) 12/04/16 18:52 66 190/66 (107) 12/04/16 15:10 177/66 (103) 12/04/16 15:10 Room Air 12/04/16 15:04 36.9 58 16 171/71 (104) 95 Room Air Physical Exam General Appearance: WD/WN, no apparent distress Eyes: sclerae normal, + pertinent finding (OU ectropion with erythematous conjunctiva, small amount yellow crust on lids and lashes, +watery discharge) ENT: hearing grossly normal Neck: trachea midline Respiratory/Chest: no respiratory distress, no accessory muscle use, + crackles (mild at bases) Cardiovascular: regular rate, rhythm, no edema, + systolic murmur ( holosystolic 2/6 at LLSB) Abdomen: normal bowel sounds, non tender, soft Extremities: non-tender, no pedal edema, no calf tenderness Neurologic/Psychiatric: alert, normal mood/affect, oriented x 3 Skin: normal color, warm/dry, no rash Laboratory Results Last 24 Hours Test 12/04/16 12:07 12/04/16 16:44 12/04/16 20:27 12/05/16 08:00 Bedside Glucose 73 mg/dl 84 mg/dl 121 mg/dl 113 mg/dl Test 12/05/16 09:37 Assessment and Plan Mr. Ambriz is an 86 y/o male with PMHx of T2DM, HLD, CAD s/p stent placement to LCx in 2007, S/P Dual Chamber Pacemaker placement for sinus node dysfunction 03/2016, HANNAH on CPAP, Bladder CA, and Prostate CA now s/p prostatectomy who is S /P L CINDY. S/P L CINDY on 12/02: doing very well, post-op - Pain management, IVF, PT/OT, DVT prophylaxis per primary - DVT prophylaxis - ASA 81 mg BID -plan for SNF placement today T2DM: A1c 5.4-well controlled, some hyperglycemia here s/p Dexamethasone treatment perioperatively-now resolved and having borderline hypoglycemia which is now improved -continue decreased dose of Glipizide XL to 5 mg daily on discharge -continue accuchecks -may need to decrease further given CKD and oral hypoglycemics in future -frequent snacks offered by RN HTN: BPs increased off his BP meds held for rising sawyer cork slabs--> Offal Separator improved and lisinopril restarted--> BPs improved today - continue to hold HCTZ on discharge -restarted Lisinopril 10mg -PRN Hydralazine IV - continue Metoprolol Succ 50 mg BID CAD s/p stent placement to LCx in 2007, S/P Dual Chamber Pacemaker placement for sinus node dysfunction 03/2016 - ASA as above and Zocor 40 mg daily -continue Toprol -continue lisinopril SHERLY in setting of CKD Stage III-baseline cr 1.6 from preop labs, sawyer cork slabs up to 2.3 POD#1, then returned to 1.7 with IVFs-resolved SHERLY -check Offal Separator today prior to discharge since started lisinopril-if not significantly worse or if improved, can dc to SNF -etiology likely ATN from intraoperative hypotension, but could be prerenal with elevated BUN/sawyer cork slabs ratio - Avoid nephrotoxic agents and monitor with BMP periodically with PCP -restarted lisinopril -continue to hold HCTZ and consider adding back on in future only if needed for peripheral edema -gave pt education in pamphlet form printed for review of CKD 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 Ortho sent off a urine culture from [facility] on 12/02/16 which is now growing out GNR. Pt is asymptomatic but did have [facility] placed this admission and had joint replacement so want to avoid bacteremia. -treat empirically with Keflex 500mg po bid -NH should follow up on URINE Cx results to ensure sensitivities ok for this choice of antibiotic HANNAH on CPAP-stable -continue CPAP nocturnally H/o Prostate and Bladder CA-in remission, s/p prostatectomy-no issues Proph-ASA 81mg bid Dispo-to SNF likely today if creatinine ok
[2016-12-05 10:39] LABS: BUN/CREATININE RATIO 20.2 (10-20); CALCIUM 9.2 mg/dl (8.5-10.1); CREATININE 1.6 mg/dl (0.60-1.40)
[2016-12-05] MEDS ORDERED: NRV5 PO (12:54)
[2016-12-05] MEDS ORDERED: NURSING VERBAL MED ORDER ONE ×3 (13:00→14:45)
[2016-12-05] MEDS ORDERED: AMLODIPINE BESYLATE 5 MG TAB PO ONE (13:15)
[2016-12-05] MEDS ORDERED: MOXIFLOXACIN HCL 0.5% OP SOLN 3 ML BTL OPB SCH (14:00)
[2016-12-05] MEDS ORDERED: HydrALAZINE HCL 20 MG/ML VIAL IV. ONE (14:45)
[2016-12-05] MEDS ORDERED: CEPHALEXIN MONOHYDRATE 500 MG CAP PO SCH (21:00)
--- NOTE | 2016-12-12 19:53 | Medical Consult ---
Consultation Date of Consultation: 2016. Attending Physician: Andrew Dahl M.D. Reason for Consultation: Medical Management History of Present Illness Mr. Ambriz is an 86 y/o male with PMHx of T2DM, HLD, CAD, HANNAH on CPAP, S/P Dual Chamber Pacemaker, Bladder CA, and Prostate CA who is S/P L CINDY. Patient is ambulating the hallways when visiting for assessment. Reporting good control of pain and tolerating diet. Gait is steady with walker. A1c 5.4 on pre- operative labs and reports good control with oral agents. Cr on pre-operative labs 1.6 with no further labs for baseline. Patient verbalizes no complaints at this time. Past Medical/Surgical History 1. T2DM 2. HLD 3. CAD 4. HANNAH 5. S/P Dual Chamber Pacemaker 6. Bladder CA 7. Prostate CA Family History Diabetes mellitus Hypertension Social History Smoking Status: Never Smoker Smokeless Tobacco Use: No Alcohol Use: none Drug Use: none Occupation Status: retired Allergies Coded Allergies: Niacin (Verified Adverse Reaction, Unknown, SEVERE FLUSHING, 12/02/16) Home Medications Ascorbic Acid (Vitamin C), 1,000 MG PO QAM Aspirin (Aspirin Ec), 81 MG PO QAM Fenofibrate (Tricor), 160 MG PO QPM Fish Oil ([place]-3), 1 CAP PO BID Glipizide (Glipizide Er), 1 TAB PO QAM Hydrochlorothiazide (Hydrochlorothiazide), 1 TAB PO QAM Lisinopril (Prinivil), 10 MG PO QAM Loratadine (Loratadine), 1 CAP PO QAM Metoprolol Succ (Toprol Xl) (Toprol-Xl), 50 MG PO BID Montelukast Sodium (Singulair), 10 MG PO QPM Sertraline (Zoloft), 100 MG PO QAM Simvastatin (Zocor), 40 MG PO QPM Review of Systems Review of Systems Constitutional: No fever, No chills Respiratory: No cough, No shortness of breath Cardiovascular: No chest pain, No palpitations Abdomen: No pain, No nausea, No vomiting, No diarrhea, No constipation Genitourinary - Male: No dysuria Neurologic: No numbness/tingling Hematologic / Lymphatic: No abnormal bleeding/bruising, No clotting problems Integumentary: No rash Physical Exam General Appearance: WD/WN, no apparent distress Head: normocephalic, atraumatic Eyes: sclerae normal ENT: + pertinent finding (mildly heard of hearing) Neck: supple, no JVD, trachea midline Respiratory/Chest: lungs clear, normal breath sounds, no respiratory distress, no accessory muscle use Cardiovascular: regular rate, rhythm Abdomen/GI: normal bowel sounds, non tender, soft Extremities/Musculoskelatal: no calf tenderness, no pedal edema, + pertinent finding (drain placed; TAD wrap C/D/I) Neurologic/Psych: alert, oriented x 3 Skin: normal color, warm/dry Assessment & Plan Mr. Ambriz is an 86 y/o male with PMHx of T2DM, HLD, CAD, HANNAH on CPAP, S/P Dual Chamber Pacemaker, Bladder CA, and Prostate CA who is S/P L CINDY. S/P L CINDY on 12/02: - Pain management, IVF, PT/OT, DVT prophylaxis per primary - DVT prophylaxis - ASA 81 mg BID T2DM: A1c 5.4 - Glipizide XL 10 mg daily and SSI HTN: - Hold HCTZ and Lisinopril until morning labs - cover with PRN Hydralazine - Metoprolol SUcc 50 mg BID CAD: - ASA as above and Zocor 40 mg daily Possible CKD Stage III: - Limited labs but given history would suspect some underlying kidney disease - Avoid nephrotoxic agents and monitor with BMP Attending Addendum: I have physically seen and examined this patient, have directed the physician assistants medical activities, and agree with the H&P as noted above with the following exceptions as noted. The patient is awake, alert and oriented 3, well-developed and well-nourished , normocephalic and atraumatic, mildly hard of hearing, lying in bed and in no acute distress. HEENT--PERRL, EOMI, mucous membranes and oropharynx normal. Neck--supple, no JVD or bruits, thyroid normal, trachea midline, no adenopathy. Heart--normal S1 and S2, no extra beats, no murmurs, rubs or gallops. Lungs--clear bilaterally with good air movement, no respiratory distress, no accessory muscle use. Abdomen--normal bowel sounds and soft, nontender and nondistended, no hernias or masses, no organomegaly. Extremities--strength placed in left hip and Tad wrapped. There are good distal pulses b/l. Dermatologic--normal skin turgor, normal color, warm and dry, no abnormal lymph nodes, no rash. Neurologic--cranial nerves II through XII grossly intact. Rheumatologic--limited postsurgery Psychiatric--normal affect. Assessment and Plan: Status post left total hip arthroplasty on 12/02-- Seen postoperatively is medically stable. Diabetes mellitus-- Place on Accu-Cheks before meals and at bedtime with NovoLog coverage per scale. Glipizide XL 10 mg daily. CAD/hypertension-- Hold HCTZ and lisinopril until morning labs. Metoprolol succinate 50 mg by mouth twice a day with hold parameters. Hydralazine 10 mg IV every 4 hours when necessary systolic blood pressure greater 160.
== END 2016-12-05 15:50 | DRG 470 ==
LOC: C.ACU 04:59 → C.MSN 07:15 → ENRESERV 09:32
PROC: 0SRS0JA Replacement of Left Hip Joint, Femoral Surface with Synthetic Substitute, Uncemented, Open Approach (ICD-10-PCS; principal; 2016-12-02 07:00)
DX: M16.12 Unilateral primary osteoarthritis, left hip (principal); N17.9 Acute kidney failure, unspecified; N18.3 Chronic kidney disease, stage 3 (moderate); E11.9 Type 2 diabetes mellitus without complications; E78.5 Hyperlipidemia, unspecified; F32.9 Major depressive disorder, single episode, unspecified; I25.10 Atherosclerotic heart disease of native coronary artery without angina pectoris; G47.30 Sleep apnea, unspecified; Z95.0 Presence of cardiac pacemaker; Z85.46 Personal history of malignant neoplasm of prostate; Z79.82 Long term (current) use of aspirin